=== PATIENT | male | born 1980 | race Caucasian/White ===

== ENCOUNTER 2020-07-29 23:14 | Emergency (ER) | payer OTHER ==
[~2020-07-29 23:14] MED LIST: NORCO 5-325 TA1 EACH PO; TYLENOL 500 MG500 MG PO; ZYVOX600 MG PO
[2020-07-30 08:20] LABS: HEMOGLOBIN 13.8 gm/dl (14.0-17.5); RED BLOOD COUNT 4.85 M/UL (4.20-5.50); WHITE BLOOD COUNT 9.8 K/UL (4.5-11.0)
[2020-07-30 08:37] LABS: BUN/CREATININE RATIO 17 (0-10)
[2020-07-30] MEDS ORDERED: CLEOCIN HCL150 MG PO (09:16)
[2020-07-30] MEDS ORDERED: HYDROCODON-ACE1 EAC4 PO (09:16)
== END 2020-07-30 09:30 | disposition home or self-care (01) ==
LOC: ER1 23:14
PROVIDERS: Physician Assistant
DX: L03.115 Cellulitis of right lower limb (principal)
CPT/HCPCS: 36415; 73701; 80053; 83605; 85025; 85652; 86140; 87040; 99284; Q9967

== ENCOUNTER 2020-09-23 17:11 | Emergency (ER) | payer OTHER ==
[~2020-09-23 17:11] MED LIST changes: +CLEOCIN HCL150 MG PO; +HYDROCODON-ACE1 EAC4 PO
[2020-09-23] MEDS ORDERED: CEPHALEXIN500 M1 PO (20:15)
[2020-09-23] MEDS ORDERED: BACTRIM 400-801 EACH PO (20:15)
== END 2020-09-23 20:26 ==
LOC: ER1 17:11
DX: L97.529 Non-pressure chronic ulcer of other part of left foot with unspecified severity (principal); L97.519 Non-pressure chronic ulcer of other part of right foot with unspecified severity
CPT/HCPCS: 99283

== ENCOUNTER → 2021-05-31 | Outpatient (CLI) | payer SELFPAY ==
[~2021-05-31] MED LIST changes: +BACTRIM 400-801 EACH PO; +CEPHALEXIN500 M1 PO
== END ==
LOC: EXRD 05-21 13:30
DX: I87.2 Venous insufficiency (chronic) (peripheral) (principal)
CPT/HCPCS: 93925; 93970